=== PATIENT | female | born 1990 | race Caucasian/White ===

== ENCOUNTER 2017-05-08 20:07 | Emergency (ER) | payer MEDICAID ==
[~2017-05-08] VITALS: Ht 167.6 cm; Wt 70.3 kg
[~2017-05-08 20:07] MED LIST: METF500T PO
[2017-05-08 20:09] VITALS: BP 122/69
--- NOTE | 2017-05-08 21:08 | NUR ---
PT TAKEN TO BED 8
--- NOTE | 2017-05-08 21:17 | NUR ---
27 Y/O F W/C/O EPIGASTRIC PAIN AND NAUSEA X 2 DAYS. PT STATES HAS A HX OF GERD. DENIES ANY VOMITING OR FEVER. NO S/S OF DISTRESS NOTED, ER MD MADE AWARE.
--- NOTE | 2017-05-08 21:19 | NUR ---
Dr. Elaine evaluating patient at bedside.
--- NOTE | 2017-05-08 21:40 | NUR ---
PT RESTING IN BED, AWATING FOR RESUTLS. NO S/S OF DISTRESS NOTED UP TO THIS POINT.
[2017-05-08 21:42] LABS: BASOPHILS # (AUTO) 0.3 K/uL (0.00-0.22); EOSINOPHILS # (AUTO) 0.1 K/uL (0-0.4); HEMATOCRIT 40.9 % (36-48); HEMOGLOBIN 13.7 g/dL (12.0-16.0); LYMPHOCYTES # (AUTO) 2.3 K/uL (2.5-16.5); MEAN CORPUSCULAR HEMOGLOBIN 29 pg (27-31); MEAN CORPUSCULAR HGB CONC 33 g/dL (33-37); MEAN CORPUSCULAR VOLUME 86 fL (80-94); MONOCYTES # (AUTO) 0.4 K/uL (0.8-1.0); NEUTROPHILS # (AUTO) 4.1 K/uL (1.8-7.7); PLATELET COUNT (AUTO) 255 K/uL (140-450); RED BLOOD CELL COUNT(AUTO) 4.77 MIL/uL (4.20-5.40); RED CELL DISTRIBUTION WIDTH 12.1 % (11.6-13.7); WHITE BLOOD COUNT (AUTO) 7.2 K/uL (4.8-10.8)
[2017-05-08 21:44] LABS: APPEARANCE,URINE CLEAR (CLEAR); BILIRUBIN,URINE NEGATIVE (NEGATIVE); BLOOD, URINE TRACE-I (NEGATIVE); COLOR,URINE YELLOW (YELLOW); LEUKOCYTE ESTERASE ,URINE NEGATIVE (NEGATIVE); NITRITE, URINE NEGATIVE (NEGATIVE); PROTEIN,URINE NEGATIVE (NEGATIVE); UGLUCOSE NEGATIVE (NEGATIVE); UROBILINOGEN,URINE 0.2 EU/dL (0.2 - 1)
[2017-05-08] MEDS ORDERED: DICYCLOMINE HCL LIQUID 20 MG, ALUMINUM HYD/MAG/SIMETHICONE 30 ML, LIDOCAINE VISCOUS 2% ... PO ONE ×3 (21:45)
[2017-05-08 21:47] LABS: BACTERIA,URINE RARE /HPF (None Seen); RBC,URINE 0-3 /HPF (0-5); SQUAMOUS EPITHELIAL CELL,UR 0-3 /LPF (0-3 (FEW)); WBC,URINE 0-3 /HPF (0-5)
[2017-05-08 21:47] LABS: CALCIUM 8.3 mg/dL (8.5-10.1); CARBON DIOXIDE 26.4 mmol/L (21-32); CREATININE 0.7 mg/dL (0.6-1.3); POTASSIUM 4.4 mmol/L (3.5-5.1)
[2017-05-08 21:53] LABS: ALBUMIN 3.9 g/dL (3.4-5.0); TOTAL BILIRUBIN 0.3 mg/dL (0.0-1.0); TOTAL PROTEIN, SERUM 7.5 g/dL (6.4-8.2)
[2017-05-08 22:25] VITALS: BP 102/61
--- NOTE | 2017-05-08 22:25 | NUR ---
Patient discharged with v/s stable. Written and verbal after care instructions given and explained. Patient alert, oriented and verbalized understanding of instructions. Ambulatory with steady gait. All questions addressed prior to discharge. ID band removed. Patient advised to follow up with PMD IN 2 DAYS OR RETURN TO ER IF CONDITION WORSENS. Rx of MYLANTA. AND OMEPRAZOLE given. Patient educated on indication of medication including possible reaction and side effects. Opportunity to ask questions provided and answered.
== END 2017-05-08 22:25 | disposition home or self-care (01) ==
LOC: MED 20:07
CPT/HCPCS: 36415; 80053; 81001; 81003; 81025; 82150; 83690; 85025; 99284

== ENCOUNTER 2018-04-20 13:18 | Emergency (ER) | payer OTHER, MEDICAID ==
[~2018-04-20] VITALS: Ht 167.6 cm; Wt 68.0 kg
[2018-04-20 13:20] VITALS: BP 124/66
--- NOTE | 2018-04-20 14:08 | NUR ---
Pt ambulated to bed 12.
[2018-04-20] MEDS ORDERED: NACL 0.9% 1,000 ML IV SCH (15:13)
[2018-04-20] MEDS ORDERED: HYDROmorphone PFS 2 MG/ML SYR IVP ONE (15:15)
[2018-04-20] MEDS ORDERED: METOCLOPRAMIDE 10 MG/2 ML INJ VIAL IVP ONE (15:15)
[2018-04-20] MEDS ORDERED: KETOROLAC 30 MG/ML VIAL IVP ONE (15:15)
[2018-04-20] MEDS ORDERED: GLYCOPYRROLATE 0.2 MG/ML VIAL IV ONE (15:15)
--- NOTE | 2018-04-20 15:26 | NUR ---
PATIENT COMPLAINS OF NAUSEA ABND VOMITING THIS MORNING. SHE HAS PAIN TO THE MIDDLE ABDOMEN REGION AND IT RADIATES TO THE RIGHT SIDE AND THE BACK. PATIENT'S ABDOMEN IS TENDER TO TOUCH AND SOFT. BOWL SOUNDS IN ALL FOUR QUADURANTS. ONSET OF PAIN HAS BEEN FOR 15 DAYS. PT RECENTLY CAME BACK FROM [place]. THE PAIN STARTED THE NEXT DAY. THE ABDOMEN GIRTH APPEARS TO BE DISTENDED AND SWOLLEN. NO KNOWN ALERGIES. PATIENT HAD AN ECTOPIC ONE YEAR AGO.
[2018-04-20 15:40] LABS: BASOPHILS # (AUTO) 0.1 K/uL (0.00-0.22); BASOPHILS % (AUTO) 0.9 % (0.0-2.0); EOSINOPHILS # (AUTO) 0.1 K/uL (0-0.4); EOSINOPHILS % (AUTO) 1.2 % (0.0-4.0); HEMATOCRIT 42.8 % (36-48); HEMOGLOBIN 14.2 g/dL (12.0-16.0); LYMPHOCYTES # (AUTO) 2.4 K/uL (2.5-16.5); LYMPHOCYTES % (AUTO) 40.9 % (20.5-51.1); MEAN CORPUSCULAR HEMOGLOBIN 29 pg (27-31); MEAN CORPUSCULAR HGB CONC 33 g/dL (33-37); MEAN CORPUSCULAR VOLUME 86.3 fL (80-94); MONOCYTES # (AUTO) 0.4 K/uL (0.8-1.0); MONOCYTES % (AUTO) 7.3 % (1.7-9.3); NEUTROPHILS # (AUTO) 2.9 K/uL (1.8-7.7); NEUTROPHILS % (AUTO) 49.7 % (42.2-75.2); PLATELET COUNT (AUTO) 279 K/uL (140-450); RED BLOOD CELL COUNT(AUTO) 4.96 MIL/uL (4.20-5.40); RED CELL DISTRIBUTION WIDTH 13.4 % (11.6-13.7); WHITE BLOOD COUNT (AUTO) 5.9 K/uL (4.8-10.8)
[2018-04-20 15:51] LABS: ANION GAP 10.5 (8-16); CARBON DIOXIDE 28.2 mmol/L (21-32); CREATININE 0.6 mg/dL (0.6-1.3); POTASSIUM 3.7 mmol/L (3.5-5.1)
[2018-04-20 15:57] LABS: ALBUMIN 3.9 g/dL (3.4-5.0); TOTAL BILIRUBIN 0.2 mg/dL (0.0-1.0)
[2018-04-20 18:26] LABS: APPEARANCE,URINE CLEAR (CLEAR); BILIRUBIN,URINE NEGATIVE (NEGATIVE); BLOOD, URINE NEGATIVE (NEGATIVE); COLOR,URINE YELLOW (YELLOW); LEUKOCYTE ESTERASE ,URINE NEGATIVE (NEGATIVE); NITRITE, URINE NEGATIVE (NEGATIVE); UGLUCOSE NEGATIVE (NEGATIVE)
[2018-04-20 19:12] VITALS: BP 96/57
--- NOTE | 2018-04-20 19:14 | NUR ---
Patient discharged with v/s stable. Written and verbal after care instructions given and explained. Patient alert, oriented and verbalized understanding of instructions. Ambulatory with steady gait. was there at discharge. All questions addressed prior to discharge. ID band removed. Patient advised to follow up with PMD. Rx reglan and prilosec of given. Patient educated on indication of medication including possible reaction and side effects. Opportunity to ask questions provided and answered.
== END 2018-04-20 19:14 | disposition home or self-care (01) ==
LOC: MED 13:18
DX: K80.50 Calculus of bile duct without cholangitis or cholecystitis without obstruction (principal); Z79.84 Long term (current) use of oral hypoglycemic drugs
CPT/HCPCS: 36415; 76705; 80053; 81003; 81025; 82150; 82977; 83690; 85025; 96361; 96374; 96375; 99285; J1170; J1885; J2765; J3490; Q0092